=== PATIENT | female | born 1995 | race Hispanic/Latino ===

== ENCOUNTER 2016-11-09 20:55 | Emergency (ER) | payer MEDICAID, OTHER ==
[2016-11-09 20:56] VITALS: BMI 39.8
[2016-11-09 21:25] VITALS: BP 130/78; PULSE 90; RESP 18; TEMP 98; O2SAT 100
--- NOTE | 2016-11-09 22:17 | ED PDOC ---
Lower Extremity Pain/Injury Time Seen by Provider: 11/09/16 21:15 Chief Complaint (Nursing): Lower Extremity Problem/Injury Chief Complaint (Provider): Right ankle pain History Per: Patient History/Exam Limitations: no limitations Onset/Duration Of Symptoms: Days Current Symptoms Are (Timing): Still Present Severity: Severe Pain Scale Rating Of: 9 Additional Complaint(s): Pt was on a trampoline and when she came down her right foot came down first. Pt states she twisted the right ankle. PT states she attemped to "walk it off" but it made it worse. 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 Denies numbness/tingling. Past Medical History Reviewed: Historical Data, Nursing Documentation, Vital Signs Vital Signs: Last Vital Signs Temp 98 F 11/09/16 21:22 Pulse 90 11/09/16 21:22 Resp 18 11/09/16 21:22 BP 130/78 11/09/16 21:22 Pulse Ox 100 11/09/16 21:22 - Medical History PMH: No Chronic Diseases Denies: HIV, Chronic Kidney Disease - Surgical History Surgical History: No Surg Hx - Family History Family History: States: Unknown Family Hx - Living Arrangements Living Arrangements: With Family - Social History Current smoker - smoking cessation education provided: No Alcohol: None Drugs: Denies - Immunization History Hx Tetanus Toxoid Vaccination: No Hx Influenza Vaccination: No Hx Pneumococcal Vaccination: No - Home Medications Home Medications: Ambulatory Orders Medication Instructions Recorded Ibuprofen [Motrin Tab] 800 mg PO Q6H PRN #20 tab 11/09/16 - Allergies Allergies/Adverse Reactions: Allergies Allergy/AdvReac Type Severity Reaction Status Date / Time No Known Allergies Allergy Verified 06/20/16 14:10 Review of Systems ROS Statement: Except As Marked, All Systems Reviewed And Found Negative Musculoskeletal: Positive for: Other (Right ankle pain ) Skin: Negative for: Bruising Physical Exam - Reviewed Nursing Documentation Reviewed: Yes Vital Signs Reviewed: Yes - Physical Exam Appears: Positive for: Well, Non-toxic, No Acute Distress Head Exam: Positive for: ATRAUMATIC, NORMAL INSPECTION, NORMOCEPHALIC Skin: Positive for: Normal Color (No ecchymosis, no erythema of the lef ankle ) , Warm Eye Exam: Positive for: Normal appearance ENT: Positive for: Normal ENT Inspection Neck: Positive for: Normal, Painless ROM Respiratory: Negative for: Accessory Muscle Use, Respiratory Distress Pulses-Dorsalis Pedis (L): 2+ Pulses-Dorsalis Pedis (R): 2+ Pulses-Post. Tibialis (L): 2+ Pulses-Post. Tibialis (R): 2+ Back: Positive for: Normal Inspection Extremity: Positive for: Normal ROM. Negative for: Tenderness Neurologic/Psych: Positive for: Alert, Oriented - ECG O2 Sat by Pulse Oximetry: 100 Pulse Ox Interpretation: Normal Medical Decision Making Medical Decision Making: Ankle x-ray: No acute fracture or dislocation. Air cast and crutches given. Disposition - Clinical Impression Clinical Impression: Ankle sprain - Patient ED Disposition Is Patient to be Admitted: No Counseled Patient/Family Regarding: Diagnosis, Need For Followup, Rx Given - Disposition Referrals: [facility] [Outside] [facility] [Outside] Disposition: Routine/Home Disposition Time: 22:59 Condition: GOOD Prescriptions: Ibuprofen [Motrin Tab] 800 mg PO Q6H PRN #20 tab PRN Reason: Pain Instructions: Ankle Sprain (ED)
--- NOTE | 2016-11-10 10:09 | RAD ---
PROCEDURE: Right Ankle Radiographs. HISTORY: pain s/p twisting COMPARISON: Comparison made with radiographs of the right foot 02/08/2016 FINDINGS: BONES: No evidence of acute displaced fracture nor dislocation. The osseous structures appear intact. Talar dome intact. . JOINTS: Ankle mortise maintained. No significant osteoarthritis. SOFT TISSUES: Minor bilateral soft tissue swelling. OTHER FINDINGS: None. IMPRESSION: No evidence of acute displaced fracture nor dislocation. Minor bilateral soft tissue swelling.
== END 2016-11-09 23:09 | disposition home or self-care (01) ==
LOC: H.ER 20:55
DX: S93.401A Sprain of unspecified ligament of right ankle, initial encounter (principal); X50.9XXA Other and unspecified overexertion or strenuous movements or postures, initial encounter; Y92.89 Other specified places as the place of occurrence of the external cause

== ENCOUNTER 2016-12-20 16:20 | Observation (INO) | payer OTHER ==
[2016-12-20 16:20] VITALS: BMI 39.8
[2016-12-20] MEDS ORDERED: Sodium Chloride 0.9% 1,000 ML IV STA ×2 (16:39→20:30)
--- NOTE | 2016-12-20 16:43 | ED PDOC ---
HPI: Abdomen Time Seen by Provider: 12/20/16 16:22 Chief Complaint (Nursing): Abdominal Pain Chief Complaint (Provider): abdominal pain History Per: Patient History/Exam Limitations: no limitations Location Of Pain/Discomfort: RUQ, Epigastric (with radiaition to back. feels better leaning forward. ) Quality Of Discomfort: Sharp, Cramping Associated Symptoms: Nausea, Vomiting, Back Pain. denies: Fever, Chills, Diarrhea, Loss Of Appetite, Chest Pain, Constipation Additional Complaint(s): 21yo F in ED for eval of acute abdominal pain beginning this afternoon, sharp intense pain radiating to back intermittent with nausea vomiting and inability to tolerate PO. pt denies dysuria, hematuira, vaginal d/c, bloody stool, cough, sore throat, ear pain . denies hx of STI. Past Medical History Reviewed: Historical Data, Nursing Documentation, Vital Signs Vital Signs: Last Vital Signs Temp 99.2 F 12/20/16 16:22 Pulse 140 H 12/20/16 16:22 Resp 16 12/20/16 16:22 BP 123/74 12/20/16 16:22 Pulse Ox 99 12/20/16 20:00 - Medical History PMH: No Chronic Diseases Denies: HIV, Chronic Kidney Disease - Family History Family History: States: Unknown Family Hx - Immunization History Hx Tetanus Toxoid Vaccination: No Hx Influenza Vaccination: No Hx Pneumococcal Vaccination: No - Home Medications Home Medications: Ambulatory Orders Medication Instructions Recorded Ibuprofen [Motrin Tab] 800 mg PO Q6H PRN #20 tab 11/09/16 - Allergies Allergies/Adverse Reactions: Allergies Allergy/AdvReac Type Severity Reaction Status Date / Time No Known Allergies Allergy Verified 06/20/16 14:10 Review of Systems ROS Statement: Except As Marked, All Systems Reviewed And Found Negative Constitutional: Negative for: Fever, Chills, Weakness ENT: Negative for: Ear Pain, Ear Discharge, Nose Pain, Nose Discharge, Nose Congestion, Mouth Pain, Mouth Swelling, Throat Pain, Throat Swelling Respiratory: Negative for: Cough, Shortness of Breath Gastrointestinal: Positive for: Nausea, Vomiting, Abdominal Pain Genitourinary Female: Negative for: Dysuria, Hematuria, Vaginal Discharge, Vaginal Bleeding, Pelvic Pain Skin: Negative for: Rash Physical Exam - Reviewed Nursing Documentation Reviewed: Yes Vital Signs Reviewed: Yes - Physical Exam Appears: Positive for: Well, Non-toxic, No Acute Distress Skin: Positive for: Normal Color, Warm, DRY Eye Exam: Positive for: Normal appearance ENT: Positive for: Normal ENT Inspection Cardiovascular/Chest: Positive for: Regular Rate, Rhythm Respiratory: Positive for: CNT, Normal Breath Sounds Gastrointestinal/Abdominal: Positive for: Bowel Sounds, Soft, Tenderness (RUQ and epigastric pain), Guarding. Negative for: Organomegaly, Mass, Distended Back: Positive for: Normal Inspection. Negative for: L CVA Tenderness, R CVA Tenderness Extremity: Positive for: Normal ROM Lymphatic: Positive for: Normal Exam Neurologic/Psych: Positive for: Alert, Oriented - Laboratory Results Result Diagrams: 12/20/16 17:05 12/20/16 17:05 - ECG O2 Sat by Pulse Oximetry: 99 - Progress ED Course And Treament: impression: gallbladder disease vs pancreatitis GERD PT with elevated WBC-will be given Zoysn pt was given pepcid, zofran, NS and morphine, however pain persistent-pt was given torodol. 12/20/16 12/20/16 12/20/16 17:38 17:05 17:05 WBC 18.7 H D RBC 4.48 Hgb 14.2 Hct 43.6 MCV 97.2 D MCH 31.6 H MCHC 32.5 L RDW 13.0 Plt Count 251 D MPV 8.8 Neut % (Auto) 86.8 H Lymph % (Auto) 6.0 L [place] % (Auto) 5.6 Eos % (Auto) 1.3 Baso % (Auto) 0.3 Neut # 16.2 H Lymph # 1.1 [place] # 1.1 H Eos # 0.2 Baso # 0.1 Neutrophils % (Manual) 82 H Band Neutrophils % 6 H Lymphocytes % (Manual) 7 L Reactive Lymphs % 2 H Monocytes % (Manual) 2 Eosinophils % (Manual) 1 Platelet Estimate Normal Hypochromasia (manual) Slight Anisocytosis (manual) Slight Stomatocytes Slight Sodium 140 Potassium 4.2 Chloride 106 Carbon Dioxide 20 L Anion Gap 18 BUN 13 Creatinine 0.6 L Est GFR ( Amer) > 60 Est GFR (Non-Af Amer) > 60 Random Glucose 96 Calcium 9.1 Total Bilirubin 0.8 AST 25 ALT 36 Alkaline Phosphatase 97 Total Protein 8.0 Albumin 4.7 Globulin 3.3 Albumin/Globulin Ratio 1.4 Lipase 82 Urine Color Yellow Urine Clarity Slighty-cloudy Urine pH 5.0 Ur Specific [place] 1.032 H Urine Protein 30 Urine Glucose (UA) Neg Urine Ketones Negative Urine Blood Small Urine Nitrate Negative Urine Bilirubin Negative Urine Urobilinogen 0.2-1.0 Ur Leukocyte Esterase Trace Urine RBC (Auto) 4 H Urine Microscopic WBC 3 Ur Squamous Epith Cells [address] Urine [address] scan: ABDOMEN: Liver: Fatty infiltration. Gallbladder and bile ducts: No calcified stones. No ductal dilation. Pancreas: No ductal dilation. No mass. Spleen: No splenomegaly. Adrenals: No mass. Kidneys and ureters: No mass. No hydronephrosis. Stomach and bowel: No definite mural thickening. No obstruction. Appendix: Normal caliber. No inflammation. PELVIS: Bladder: Unremarkable. Reproductive: Unremarkable as visualized. ABDOMEN and PELVIS: Intraperitoneal space: No significant fluid collection. No free air. Bones/joints: No acute fracture. Soft tissues: Minimal soft tissue thickening along umbilicus. No discrete collection. Vasculature: Unremarkable. No aneurysm. Lymph nodes: No pathologically enlarged lymph nodes. IMPRESSION: 1. No definite acute intraabdominal abnormality. 2. Incidental/non-acute findings are described above. US: FINDINGS: Limitations: Body habitus. Liver: Normal echogenicity. No mass. No intrahepatic bile duct dilatation. Gallbladder: No gallstones. No definite wall thickening. No pericholecystic fluid. No sonographic Solis's sign. Common bile duct: No dilatation. No stones. Pancreas: Unremarkable as visualized. Right kidney: Normal echogenicity. No hydronephrosis. IMPRESSION: 1. No acute findings. Thank you for allowing us to participate in the care of your patient. Dictated and Authenticated by: Joseph Fine MD 12/20/2016 6:00 PM Eastern Time ([place] & [place]) MD Henny made aware. considering pt is with elevated WBC and elevated Bands normal CT and US and only trace leuk with epigastric pain(non consistent with pylonephiritis or c/o dysuria) and continuos pain pt will be admitted. MD Frannie contacted-suggests pt gets d-dimer, Troponin and EKG and make aware of results. Disposition - Clinical Impression Clinical Impression: Abdominal pain - Patient ED Disposition Is Patient to be Admitted: Transfer of Care - Disposition Disposition Time: 20:02 Condition: STABLE Forms: Kiddy (Serbian) Patient Signed Over To: Gopal Guerrero (pending labs)
[2016-12-20 17:31] LABS: BASO # 0.1 K/uL (0.0-0.2); BASO % 0.3 % (0.0-2.0); EOS # 0.2 K/uL (0.0-0.7); EOS % 1.3 % (0.0-4.0); HEMATOCRIT 43.6 % (34.0-47.0); LYMPH # 1.1 K/uL (1.0-4.3); MEAN CELL VOLUME 97.2 fl (81.0-99.0); MEAN CORPUSCULAR HEMOGLOBIN 31.6 pg (27.0-31.0); MEAN CORPUSCULAR HGB CONC 32.5 g/dL (33.0-37.0); MEAN PLATELET VOLUME 8.8 fl (7.2-11.7); MONO # 1.1 K/uL (0.0-0.8); MONO % 5.6 % (0.0-10.0); NEUT # 16.2 K/uL (1.8-7.0); NEUT % 86.8 % (50.0-75.0); PLATELET COUNT 251 K/uL (130-400); WHITE BLOOD COUNT 18.7 K/uL (4.8-10.8)
[2016-12-20 17:40] LABS: ALB/GLOB RATIO 1.4 (1.0-2.1); ALKALINE PHOSPHATASE 97 U/L (38-126); ALT/SGPT 36 U/L (9-52); AST/SGOT 25 U/L (14-36); BILIRUBIN,TOTAL 0.8 mg/dl (0.2-1.3); BLOOD UREA NITROGEN 13 mg/dl (7-17); CALCIUM 9.1 mg/dL (8.4-10.2); CARBON DIOXIDE 20 mmol/L (22-30); CHLORIDE 106 mmol/L (98-107); GFR AFRICAN-AMERICAN > 60; GLUCOSE,RANDOM 96 mg/dL (65-105); LIPASE 82 U/L (23-300); POTASSIUM 4.2 MMOL/L (3.6-5.0); SODIUM 140 mmol/l (132-148)
[2016-12-20] MEDS ORDERED: Piperacillin/Tazobact 3.375 GM in Sodium Chloride 0.9% 100 ML IVPB STA (17:45)
[2016-12-20] MEDS ORDERED: Piperacillin/Tazobact 3.375 gm Inj IVPB ONE (17:49)
--- NOTE | 2016-12-20 18:00 | US ---
EXAM: US Abdomen Limited, Right Upper Quadrant CLINICAL HISTORY: 21 years old, female; Pain; Abdominal pain; Epigastric; Patient HX: Pt states pain x few hrs on/off; Additional info: Epigastric pain ruq tendern TECHNIQUE: Real-time ultrasound of the right upper quadrant with image documentation. COMPARISON: No relevant prior studies available. FINDINGS: Limitations: Body habitus. Liver: Normal echogenicity. No mass. No intrahepatic bile duct dilatation. Gallbladder: No gallstones. No definite wall thickening. No pericholecystic fluid. No sonographic Solis's sign. Common bile duct: No dilatation. No stones. Pancreas: Unremarkable as visualized. Right kidney: Normal echogenicity. No hydronephrosis. IMPRESSION: 1.No acute findings.
[2016-12-20 18:06] LABS: RBC URINE 4 /hpf (0-3); URINE BACTERIA RARE (<OCC); URINE BILIRUBIN NEGATIVE (NEGATIVE); URINE BLOOD SMALL (NEGATIVE); URINE COLOR YELLOW (YELLOW); URINE GLUCOSE (UA) NEG (Normal); URINE KETONE NEGATIVE (NEGATIVE); URINE LEUKOCYTE ESTERASE TRACE Leu/uL (Negative); URINE PROTEIN 30 mg/dL (NEGATIVE); URINE UROBILINOGEN 0.2-1.0 mg/dL (0.2-1.0); WBC URINE 3 /hpf (0-5)
[2016-12-20] MEDS ORDERED: Sodium Chloride 0.9% 50 ML IV ONE ×2 (18:26→20:53)
[2016-12-20] MEDS ORDERED: Iohexol 300 50 ML ONE (18:26)
--- NOTE | 2016-12-20 19:00 | CT ---
EXAM: CT Abdomen and Pelvis With Intravenous Contrast CLINICAL HISTORY: 21 years old, female; Pain; Abdominal pain; Epigastric; Additional info: Abdominal pain elevated wbc TECHNIQUE: Axial computed tomography images of the abdomen and pelvis with intravenous contrast. All CT scans at this facility use one or more dose reduction techniques, viz.: automated exposure control; ma/kV adjustment per patient size (including targeted exams where dose is matched to indication; i.e. head); or iterative reconstruction technique. Coronal and sagittal reformatted images were created and reviewed. CONTRAST: 95 mL of Omnipaque administered intravenously. COMPARISON: CT - ABD PELVIS PO IV CONTRAST 08/06/2014 10:27:56 PM FINDINGS: Lower thorax: No acute findings. ABDOMEN: Liver: Fatty infiltration. Gallbladder and bile ducts: No calcified stones. No ductal dilation. Pancreas: No ductal dilation. No mass. Spleen: No splenomegaly. Adrenals: No mass. Kidneys and ureters: No mass. No hydronephrosis. Stomach and bowel: No definite mural thickening. No obstruction. Appendix: Normal caliber. No inflammation. PELVIS: Bladder: Unremarkable. Reproductive: Unremarkable as visualized. ABDOMEN and PELVIS: Intraperitoneal space: No significant fluid collection. No free air. Bones/joints: No acute fracture. Soft tissues: Minimal soft tissue thickening along umbilicus. No discrete collection. Vasculature: Unremarkable. No aneurysm. Lymph nodes: No pathologically enlarged lymph nodes. IMPRESSION: 1. No definite acute intraabdominal abnormality. 2. Incidental/non-acute findings are described above.
[2016-12-20 19:07] LABS: EOSINOPHIL 1 % (0-7); NEUTROPHIL 82 % (42-75); REACTIVE LYMPHOCYTES 2 % (0-0); TOTAL CELLS COUNTED 100
[2016-12-20 19:09] LABS: STOMATOCYTES SLIGHT
--- NOTE | 2016-12-20 20:21 | ED PDOC ---
- Laboratory Results Result Diagrams: 12/21/16 04:00 12/21/16 04:00 - ECG O2 Sat by Pulse Oximetry: 99 - Progress ED Course And Treament: 1999 Signed out to me pending CTA chest r/o PE. 2004 On my initial evaluation, pt. resting comfortably and in no distress. Informed of plan to admit and agrees. EKG: Sinus tach 126bpm without ST-T wave changes. VBG ordered. 2138 Pain returned. Temperature 101 Morphine 4mg IV, zofran 4mg IV, Tylenol 975mg PO ordered. 0000 CTA chest: negative Case and results d/w Dr. Kathleen and arrangements made for admission. Disposition - Clinical Impression Clinical Impression: Intractable abdominal pain - POA Present On Arrival: None - Disposition Disposition: Routine/Home Disposition Time: 00:00 Condition: STABLE
[2016-12-20] MEDS ORDERED: Iodixanol 320 MG/ML 100 ML BOTTLE IV ONE (20:53)
[2016-12-20 21:18] LABS: VENOUS BLOOD GAS BASE EXCESS -1.1 mmol/L (0.0-2.0); VENOUS BLOOD GAS PCO2 38 mmHg (40-60)
--- NOTE | 2016-12-20 22:39 | CT ---
EXAM: CT Angiography Chest With Intravenous Contrast CLINICAL HISTORY: 21 years old, female; Signs and symptoms; Tachypnea; Additional info: Tachycardia TECHNIQUE: Axial computed tomographic angiography images of the chest with intravenous contrast using pulmonary embolism protocol. All CT scans at this facility use one or more dose reduction techniques, viz.: automated exposure control; ma/kV adjustment per patient size (including targeted exams where dose is matched to indication; i.e. head); or iterative reconstruction technique. MIP reconstructed images were created and reviewed. Coronal and sagittal reformatted images were created and reviewed. CONTRAST: 70 mL of [id number] administered intravenously. COMPARISON: No relevant prior studies available. FINDINGS: Limitations: Suboptimal timing of bolus. Pulmonary arteries: No definite pulmonary embolism. Aorta: No aneurysm. No dissection. Lungs: No consolidation. Pleural space: No significant effusion. No pneumothorax. Heart: No cardiomegaly. No significant pericardial effusion. Bones/joints: No acute fracture. No dislocation. Soft tissues: Unremarkable. Lymph nodes: No pathologically enlarged lymph nodes. Liver: Fatty infiltration. IMPRESSION: 1. No definite CT evidence of pulmonary embolism. 2. Incidental/non-acute findings are described above.
[2016-12-21 04:16] LABS: BASO % 0.3 % (0.0-2.0); EOS # 0.2 K/uL (0.0-0.7); EOS % 2.8 % (0.0-4.0); HEMATOCRIT 34.9 % (34.0-47.0); LYMPH # 1.5 K/uL (1.0-4.3); LYMPH % 19.8 % (20.0-40.0); MEAN CELL VOLUME 95.6 fl (81.0-99.0); MEAN CORPUSCULAR HEMOGLOBIN 33.1 pg (27.0-31.0); MEAN CORPUSCULAR HGB CONC 34.6 g/dL (33.0-37.0); MEAN PLATELET VOLUME 8.4 fl (7.2-11.7); MONO # 0.6 K/uL (0.0-0.8); MONO % 8.2 % (0.0-10.0); NEUT # 5.2 K/uL (1.8-7.0); NEUT % 68.9 % (50.0-75.0); NRBC % 0.1 % (0.0-0.0); RED CELL DISTRIBUTION WIDTH 12.8 % (11.5-14.5); WHITE BLOOD COUNT 7.5 K/uL (4.8-10.8)
[2016-12-21 04:26] LABS: ALB/GLOB RATIO 1.3 (1.0-2.1); ALKALINE PHOSPHATASE 66 U/L (38-126); ALT/SGPT 28 U/L (9-52); AST/SGOT 20 U/L (14-36); BILIRUBIN,TOTAL 0.7 mg/dl (0.2-1.3); BLOOD UREA NITROGEN 11 mg/dl (7-17); CALCIUM 8.1 mg/dL (8.4-10.2); CARBON DIOXIDE 25 mmol/L (22-30); CHLORIDE 107 mmol/L (98-107); GFR AFRICAN-AMERICAN > 60; GLUCOSE,RANDOM 92 mg/dL (65-105); POTASSIUM 3.9 MMOL/L (3.6-5.0); SODIUM 139 mmol/l (132-148); TOTAL PROTEIN 5.9 G/DL (6.3-8.2)
[2016-12-21 04:57] LABS: THYROID STIMULATING HORMONE 0.94 mIU/ML (0.46-4.68)
[2016-12-21] MEDS: Budesonide 0.25 mg/2 ml Inhal Susp UD INH SCH ×2 (07:37→19:12)
--- NOTE | 2016-12-21 07:55 | RAD ---
HISTORY: cough COMPARISON: Chest radiograph 11/14/2007. TECHNIQUE: Chest PA and lateral FINDINGS: LUNGS: No active pulmonary disease. PLEURA: No significant pleural effusion identified. No pneumothorax apparent. CARDIOVASCULAR: Normal. OSSEOUS STRUCTURES: No significant abnormalities. VISUALIZED UPPER ABDOMEN: Normal. OTHER FINDINGS: None. IMPRESSION: No acute cardiopulmonary disease or significant interval change 11/14/2007.
[2016-12-21] MEDS: Enoxaparin 40 mg Syringe SC SCH (08:23)
[2016-12-21] MEDS: Azithromycin 500 MG in Sodium Chloride 0.9% 250 ML IVPB SCH (08:24)
--- NOTE | 2016-12-21 12:36 | CP.PCM.CON ---
History of Present Illness - History of Present Illness History of Present Illness: this 21-year-old female was hospitalized with abdominal pain which was aggravated by meals.she was also febrile at admission (Temp 101 degrees)with leukocytosis. This consultation was requested because of a suspicious tracing from telemetry which was suggestive of ventricular tachycardia. The patient denies any history of hypertension or diabetes and has had 3 successful pregnancies without any complication. She denies any palpitations or lightheadedness or syncope or near syncope. She was told of having had a murmur as a child but it never got in the way of normal life, iincluding the 3 aforementioned pregnancies. She has no family history of vascular disease. She denies taking any recreational drugs. Physical examination shows a young female who is comfortable at rest, alert awake weren't afebrile. She has a heart rate of 74 bpm and a blood pressure of 104/74 mmHg. jugular venous pressure was not elevated and there was no edema over lower extremity. The pedal pulses were well felt. Thyroid and breast did not reveal anything abnormal. Her extremities were warm. Her nailbeds were pink. There was no central or peripheral cyanosis. Her apex was in the fifth space and first and second heart sounds were normal. There was no murmur or gallop there were no rales. Abdomen was soft liver and spleen are not palpable. Her electro-cardiogram showed sinus rhythm at 126 bpm at admission when she was febrile. her QTC was 480 ms. There are electro-cardiogram otherwise was unremarkable. Her echocardiogram showed a normal-sized left ventricle with normal regional wall motion and wall thickening. Her resting left ventricular ejection fraction was 65-70%. Her lab data at admission showed leukocytosis with WBC count of 18,700 with elevated neutrophil count. This has resolved this morning. Her electrolytes and BUN/creatinine were normal. Review of the telemetric tracing suspicious of ventricular tachycardia indicates severe baseline artifact through which her QRSs March regularly. No evidence of ventricular tachycardia or cardiac abnormality detected. Past Patient History - Infectious Disease Hx of Infectious Diseases: None - Past Medical History & Family History Past Medical History?: Yes - Past Social History Smoking Status: Former Smoker - CARDIAC Hx Cardiac Disorders: No - PULMONARY Hx Respiratory Disorders: No - NEUROLOGICAL Hx Neurological Disorder: Yes (vertigo) Hx Dizziness: Yes Hx Vertigo: Yes - HEENT Hx HEENT Problems: No - RENAL Hx Chronic Kidney Disease: No - ENDOCRINE/METABOLIC Hx Endocrine Disorders: No - HEMATOLOGICAL/ONCOLOGICAL Hx Human Immunodeficiency Virus (HIV): No - INTEGUMENTARY Hx Dermatological Problems: Yes (psorasis) - MUSCULOSKELETAL/RHEUMATOLOGICAL Hx Falls: No - GASTROINTESTINAL Hx Gastrointestinal Disorders: Yes Other/Comment: Abdominal hernia - GENITOURINARY/GYNECOLOGICAL Hx Genitourinary Disorders: No - PSYCHIATRIC Hx Substance Use: No - SURGICAL HISTORY Hx Surgeries: No - ANESTHESIA Hx Anesthesia: No Hx Anesthesia Reactions: No Hx Malignant Hyperthermia: No Meds Allergies/Adverse Reactions: Allergies Allergy/AdvReac Type Severity Reaction Status Date / Time No Known Allergies Allergy Verified 06/20/16 14:10 - Medications Medications: Current Medications Budesonide (Pulmicort Respules) 0.25 mg INH RBID [facility] Stop: 12/21/16 20:01 Last Admin: 12/21/16 07:37 Dose: 0.25 mg Enoxaparin Sodium (Lovenox) 40 mg SC DAILY [facility] PRN Reason: Protocol Last Admin: 12/21/16 08:23 Dose: 40 mg Ceftriaxone Sodium 1 gm/ (Sodium Chloride) 100 mls @ 100 mls/hr IVPB DAILY [facility] Last Admin: 12/21/16 08:25 Dose: 100 mls/hr Azithromycin 500 mg/ Sodium (Chloride) 250 mls @ 250 mls/hr IVPB DAILY [facility] Last Admin: 12/21/16 08:24 Dose: 250 mls/hr Pantoprazole Sodium (Protonix Inj) 40 mg IVP DAILY [facility] Last Admin: 12/21/16 08:23 Dose: 40 mg Results - Vital Signs Recent Vital Signs: Last Vital Signs Temp 98.4 F 12/21/16 11:57 Pulse 88 12/21/16 11:57 Resp 18 12/21/16 11:57 BP 107/73 12/21/16 11:57 Pulse Ox 98 12/21/16 11:57 - Labs Result Diagrams: 12/21/16 04:00 12/21/16 04:00 Labs: Laboratory Results - last 24 hr 12/21/16 12/21/16 12/21/16 03:30 04:00 04:00 WBC 7.5 D RBC 3.65 L Hgb 12.1 D Hct 34.9 MCV 95.6 MCH 33.1 H MCHC 34.6 RDW 12.8 Plt Count 184 MPV 8.4 Neut % (Auto) 68.9 Lymph % (Auto) 19.8 L [place] % (Auto) 8.2 Eos % (Auto) 2.8 Baso % (Auto) 0.3 Neut # 5.2 Lymph # 1.5 [place] # 0.6 Eos # 0.2 Baso # 0.0 Sodium 139 Potassium 3.9 Chloride 107 Carbon Dioxide 25 Anion Gap 11 BUN 11 Creatinine 0.6 L Est GFR ( Amer) > 60 Est GFR (Non-Af Amer) > 60 Random Glucose 92 Calcium 8.1 L Total Bilirubin 0.7 AST 20 ALT 28 Alkaline Phosphatase 66 Troponin I < 0.0120 Total Protein 5.9 L Albumin 3.3 L D Globulin 2.6 Albumin/Globulin Ratio 1.3 TSH 3rd Generation 0.94
[2016-12-21] MEDS: Sucralfate 1 gm/10 ml Oral Susp UD PO SCH (17:24)
--- NOTE | 2016-12-22 00:19 | CP.PCM.HP ---
History of Present Illness - History of Present Illness History of Present Illness: A 21 yr old femlae with hx of GERD,obesity,psoriasis came with c\o epigastric pain radiating to both sides ,as kept recurrent without resolving with her regular meds Past Patient History - Infectious Disease Hx of Infectious Diseases: None - Past Medical History & Family History Past Medical History?: Yes - Past Social History Smoking Status: Former Smoker - CARDIAC Hx Cardiac Disorders: No - PULMONARY Hx Respiratory Disorders: No - NEUROLOGICAL Hx Neurological Disorder: Yes (vertigo) Hx Dizziness: Yes Hx Vertigo: Yes - HEENT Hx HEENT Problems: No - RENAL Hx Chronic Kidney Disease: No - ENDOCRINE/METABOLIC Hx Endocrine Disorders: No - HEMATOLOGICAL/ONCOLOGICAL Hx Human Immunodeficiency Virus (HIV): No - INTEGUMENTARY Hx Dermatological Problems: Yes (psorasis) - MUSCULOSKELETAL/RHEUMATOLOGICAL Hx Falls: No - GASTROINTESTINAL Hx Gastrointestinal Disorders: Yes Other/Comment: Abdominal hernia - GENITOURINARY/GYNECOLOGICAL Hx Genitourinary Disorders: No - PSYCHIATRIC Hx Substance Use: No - SURGICAL HISTORY Hx Surgeries: No - ANESTHESIA Hx Anesthesia: No Hx Anesthesia Reactions: No Hx Malignant Hyperthermia: No Meds Allergies/Adverse Reactions: Allergies Allergy/AdvReac Type Severity Reaction Status Date / Time No Known Allergies Allergy Verified 06/20/16 14:10 Results - Vital Signs Recent Vital Signs: Last Vital Signs Temp 98.2 F 12/22/16 00:08 Pulse 90 12/22/16 00:08 Resp 18 12/22/16 00:08 BP 110/70 12/22/16 00:08 Pulse Ox 97 12/22/16 00:08 - Labs Result Diagrams: 12/21/16 04:00 12/21/16 04:00 Labs: Laboratory Results - last 24 hr 12/21/16 12/21/16 12/21/16 03:30 04:00 04:00 WBC 7.5 D RBC 3.65 L Hgb 12.1 D Hct 34.9 MCV 95.6 MCH 33.1 H MCHC 34.6 RDW 12.8 Plt Count 184 MPV 8.4 Neut % (Auto) 68.9 Lymph % (Auto) 19.8 L [place] % (Auto) 8.2 Eos % (Auto) 2.8 Baso % (Auto) 0.3 Neut # 5.2 Lymph # 1.5 [place] # 0.6 Eos # 0.2 Baso # 0.0 Sodium 139 Potassium 3.9 Chloride 107 Carbon Dioxide 25 Anion Gap 11 BUN 11 Creatinine 0.6 L Est GFR ( Amer) > 60 Est GFR (Non-Af Amer) > 60 Random Glucose 92 Calcium 8.1 L Total Bilirubin 0.7 AST 20 ALT 28 Alkaline Phosphatase 66 Troponin I < 0.0120 Total Protein 5.9 L Albumin 3.3 L D Globulin 2.6 Albumin/Globulin Ratio 1.3 TSH 3rd Generation 0.94 12/21/16 12:14 WBC RBC Hgb Hct MCV MCH MCHC RDW Plt Count MPV Neut % (Auto) Lymph % (Auto) [place] % (Auto) Eos % (Auto) Baso % (Auto) Neut # Lymph # [place] # Eos # Baso # Sodium Potassium Chloride Carbon Dioxide Anion Gap BUN Creatinine Est GFR ( Amer) Est GFR (Non-Af Amer) Random Glucose Calcium Total Bilirubin AST ALT Alkaline Phosphatase Troponin I < 0.0120 Total Protein Albumin Globulin Albumin/Globulin Ratio TSH 3rd Generation Assessment & Plan (1) Epigastric pain Status: Acute (2) Fever Status: Acute (3) Psoriasis Status: Acute
[2016-12-22 08:34] VITALS: RESP 20
[2016-12-22] MEDS: Sucralfate 1 gm/10 ml Oral Susp UD PO SCH (08:41)
[2016-12-22] MEDS: Enoxaparin 40 mg Syringe SC SCH (08:42)
[2016-12-22] MEDS: Azithromycin 500 MG in Sodium Chloride 0.9% 250 ML IVPB SCH (08:44)
--- NOTE | 2016-12-22 11:22 | CARD ---
APPROVED REPORT EXAM: Two-dimensional and M-mode echocardiogram with Doppler and color Doppler. Other Information Quality : GoodRhythm : NSR INDICATION LV Function:SystolicDiastolic Chest pressure 2D DIMENSIONS IVSd1.00 (0.7-1.1cm)LVDd4.62 (3.9-5.9cm) LVOT Diameter2.22 (1.8-2.4cm)PWd0.84 (0.7-1.1cm) IVSs1.39 (0.8-1.2cm)LVDs2.99 (2.5-4.0cm) FS (%) 35.3 %PWs1.52 (0.8-1.2cm) M-Mode DIMENSIONS Left Atrium (MM)3.81 (2.5-4.0cm)IVSd1.35 (0.7-1.1cm) Aortic Root2.54 (2.2-3.7cm)LVDd4.63 (4.0-5.6cm) Aortic Cusp Exc.1.82 (1.5-2.0cm)PWd0.88 (0.7-1.1cm) IVSs1.52 cmFS (%) 27 % LVDs3.39 (2.0-3.8cm)PWs1.24 cm Mitral Valve E/A ratio0.0 TDI E/Lateral E'0.0E/Medial E'0.0 Pulmonary Valve PV Peak Whbjarxp552.3cm/s LEFT VENTRICLE The left ventricle is normal size. There is normal left ventricular wall thickness. The left ventricular function is normal. The left ventricular ejection fraction is 60% There is normal LV segmental wall motion. The left ventricular diastolic function is normal. No left ventricle thrombus noted on this study. There is no ventricular septal defect visualized. There is no left ventricular aneurysm. There is no mass noted in the left ventricle. RIGHT VENTRICLE The right ventricle is normal size. There is normal right ventricular wall thickness. The right ventricular systolic function is normal. ATRIA The left atrium size is normal. The right atrium size is normal. The interatrial septum is intact with no evidence for an atrial septal defect. AORTIC VALVE The aortic valve is normal in structure and function. No aortic regurgitation is present. There is no aortic valvular stenosis. There is no aortic valvular vegetation. MITRAL VALVE The mitral valve is normal in structure and function. There is no evidence of mitral valve prolapse. There is no mitral valve stenosis. There is no mitral valve regurgitation noted. TRICUSPID VALVE The tricuspid valve is normal in structure and function. There is no tricuspid valve regurgitation noted. There is no tricuspid valve prolapse or vegetation. There is no tricuspid valve stenosis. PULMONIC VALVE The pulmonary valve is normal in structure and function. There is no pulmonic valvular regurgitation. There is no pulmonic valvular stenosis. GREAT VESSELS The aortic root is normal in size. The ascending aorta is normal in size. The IVC is normal in size and collapses >50% with inspiration. PERICARDIAL EFFUSION The pericardium appears normal. There is no pleural effusion. <Conclusion> Normal Echocardiogram
[2016-12-22 12:20] VITALS: BP 104/66; PULSE 79; TEMP 98.7; O2SAT 98
== END 2016-12-22 12:45 | disposition home or self-care (01) ==
LOC: H.ER 16:20 → H.ERHOLD 12-21 → INTOOBSV 12-21 → H.TEL 12-21 01:56
PROVIDERS: ADMIT Internal Medicine; ATTEND Internal Medicine
DX: R10.13 Epigastric pain (principal); R50.9 Fever, unspecified; Z87.891 Personal history of nicotine dependence; K21.9 Gastro-esophageal reflux disease without esophagitis; E66.9 Obesity, unspecified; Z68.41 Body mass index [BMI] 40.0-44.9, adult; L40.9 Psoriasis, unspecified
CPT/HCPCS: 36415; 71020; 71275; 74177; 76705; 80053; 81003; 81025; 82803; 83690; 84443; 84484; 85025; 85378; 87040; 87070; 87086; 87430; 93306; 94640; 96374; 96375; 96376; 99285; C9113; G0378; J0456; J0696; J1650; J1885; J2270; J2405; J2543; J7040; Q9967

== ENCOUNTER 2018-01-09 10:03 | Emergency (ER) | payer MEDICAID, OTHER ==
[2018-01-09 10:19] VITALS: BMI 42.0
[2018-01-09 10:21] VITALS: O2SAT 98
[2018-01-09] MEDS ORDERED: Sodium Chloride 0.9% 1,000 ML IV STA (11:17)
[2018-01-09 11:58] LABS: SQUAMOUS EPITHIAL 4 /hpf (0-5); URINE BACTERIA RARE (<OCC); URINE BILIRUBIN NEGATIVE (NEGATIVE); URINE BLOOD NEGATIVE (NEGATIVE); URINE CLARITY SLIGHTY-CLOUDY (Clear); URINE COLOR YELLOW (YELLOW); URINE GLUCOSE (UA) NEG (Normal); URINE LEUKOCYTE ESTERASE TRACE Leu/uL (Negative); URINE PROTEIN NEGATIVE (NEGATIVE); URINE UROBILINOGEN 0.2-1.0 mg/dL (0.2-1.0)
[2018-01-09 13:30] LABS: ALB/GLOB RATIO 1.3 (1.0-2.1); ALT/SGPT 28 U/L (9-52); AST/SGOT 32 U/L (14-36); BLOOD UREA NITROGEN 12 mg/dl (7-17); CALCIUM 8.9 mg/dL (8.4-10.2); GFR NON-AFRICAN AMERICAN > 60; LIPASE 159 U/L (23-300)
--- NOTE | 2018-01-09 14:04 | ED PDOC ---
HPI: Abdomen Time Seen by Provider: 01/09/18 11:11 Chief Complaint (Nursing): GI Problem Chief Complaint (Provider): Abdominal Pain, Diarrhea History Per: Patient History/Exam Limitations: no limitations Onset/Duration Of Symptoms: Days (x2) Current Symptoms Are (Timing): Still Present Additional Complaint(s): 22 year old female, with no significant past medical history, presenting for evaluation of abdominal pain x2 days. Patient states pain is associated with watery diarrhea and nausea. Patient states she was in the bathroom for an extended time at work and when she came out she was sweaty. Patient states her boss saw her sweaty and made her come to the ED. Patient denies any weakness or dizziness and states she was able to drive to the ED without any problems. Patient states her children have recently been sick with similar symptoms. Patient says she rarely has diarrhea, but it feels like a viral stomach but and she normally wouldnt present to the ED for evaluation, but wants to be worked up due to her sweating. Past Medical History Reviewed: Historical Data, Nursing Documentation, Vital Signs Vital Signs: Last Vital Signs Temp 98.7 F 01/09/18 10:19 Pulse 86 01/09/18 10:19 Resp 17 01/09/18 10:19 BP 103/64 01/09/18 10:19 Pulse Ox 98 01/09/18 14:10 - Medical History PMH: No Chronic Diseases Denies: HIV, Chronic Kidney Disease - Surgical History Surgical History: No Surg Hx - Family History Family History: States: Unknown Family Hx - Immunization History Hx Tetanus Toxoid Vaccination: No Hx Influenza Vaccination: No Hx Pneumococcal Vaccination: No - Home Medications Home Medications: Ambulatory Orders Medication Instructions Recorded Azithromycin [Zithromax Tri-Shayan] 500 mg PO DAILY #3 tablet 12/22/16 Omeprazole 20 mg PO Q12 #20 capsule. 12/22/16 Sucralfate [Carafate Oral Susp] 1 gm PO BID #20 12/22/16 Nitrofurantoin Macrocrystals 100 mg PO BID #10 cap 01/09/18 [Macrobid] - Allergies Allergies/Adverse Reactions: Allergies Allergy/AdvReac Type Severity Reaction Status Date / Time No Known Allergies Allergy Verified 06/20/16 14:10 Review of Systems ROS Statement: Except As Marked, All Systems Reviewed And Found Negative Constitutional: Positive for: Sweats. Negative for: Weakness Gastrointestinal: Positive for: Nausea, Abdominal Pain, Diarrhea Neurological: Negative for: Dizziness Physical Exam - Reviewed Nursing Documentation Reviewed: Yes Vital Signs Reviewed: Yes - Physical Exam Appears: Positive for: Well (patient is obese), Non-toxic, No Acute Distress Head Exam: Positive for: ATRAUMATIC, NORMAL INSPECTION, NORMOCEPHALIC Skin: Positive for: Normal Color, Warm, Dry. Negative for: Rash Eye Exam: Positive for: EOMI, Normal appearance, PERRL ENT: Positive for: Normal ENT Inspection Neck: Positive for: Normal, Painless ROM, Supple Cardiovascular/Chest: Positive for: Regular Rate, Rhythm. Negative for: Murmur Respiratory: Positive for: Normal Breath Sounds. Negative for: Respiratory Distress Gastrointestinal/Abdominal: Positive for: Normal Exam, Soft. Negative for: Tenderness Back: Positive for: Normal Inspection. Negative for: L CVA Tenderness, R CVA Tenderness, Vertebral Tenderness Extremity: Positive for: Normal ROM. Negative for: Pedal Edema, Swelling Neurologic/Psych: Positive for: Alert, Oriented, Gait (ambulatory without deficits). Negative for: Motor/Sensory Deficits - Laboratory Results Result Diagrams: 01/09/18 11:50 - ECG O2 Sat by Pulse Oximetry: 98 (RA) Pulse Ox Interpretation: Normal Medical Decision Making Medical Decision Makin Plan: Patient seen and evaluated. Labs ordered. Patient treated with Zofran and Tylenol for symptoms. Hydrated with NS 1L. 1347: Diarrhea. Most likely viral in etiology, however UA shows slight UTI. Patient with stable vitals and tolerating PO. Patient will be given prescription for Macrobid and discharged home. Advised to follow up with PMD and given 2 days absence from work. Return parameters discussed. Scribe Attestation: Documented by Case Aleman, acting as a scribe for Inocencia Carter MD. Provider Scribe Attestation: All medical record entries made by the Scribe were at my direction and personally dictated by me. I have reviewed the chart and agree that the record accurately reflects my personal performance of the history, physical exam, medical decision making, and the department course for this patient. I have also personally directed, reviewed, and agree with the discharge instructions and disposition. Disposition - Clinical Impression Clinical Impression: Diarrhea, Urinary tract infection - Patient ED Disposition Is Patient to be Admitted: No Counseled Patient/Family Regarding: Studies Performed, Diagnosis, Need For Followup, Rx Given - Disposition Disposition: Routine/Home Disposition Time: 13:47 Condition: IMPROVED Additional Instructions: Increase water intake while symptoms last. Take antibiotics for urinary tract infection. Follow up with primary medical doctor. Return to the emergency department if symptoms worsen or if new symptoms develop. Prescriptions: Nitrofurantoin Macrocrystals [Macrobid] 100 mg PO BID #10 cap Instructions: Diarrhea and Traveler's Diarrhea, Adult (DC), Urinary Tract Infection, Adult (DC) Forms: [facility] ([place]) Print Language: TELUGU
[2018-01-09 14:28] VITALS: BP 109/71; PULSE 84; RESP 16; TEMP 98.4
== END 2018-01-09 14:26 | disposition home or self-care (01) ==
LOC: H.ER 10:03
DX: N39.0 Urinary tract infection, site not specified (principal); R19.7 Diarrhea, unspecified
CPT/HCPCS: 80053; 81003; 83690; 84703; 96361; 96374; 99284; J2405; J7030

== ENCOUNTER 2018-08-10 10:49 | Emergency (ER) | payer MEDICAID ==
[2018-08-10 10:50] VITALS: BMI 42.0
[2018-08-10] MEDS ORDERED: Sodium Chloride 0.9% 1,000 ML IV SCH (11:30)
--- NOTE | 2018-08-10 11:35 | ED PDOC ---
HPI:STROKE - Time Time: 11:31 - Historian Historian: Patient - Chief Complaint Chief Complaint: Numbness, other (Headache) - Onset Date: 08/10/18 Time: 08:30 Onset: Hours (3) - Timing Timing: Improved - Context Context: Standing - Location Locate left: Face - Severity of pain Maximum severity:: Moderate Severity Current: Mild - Quality of Pain Quality of Pain:: Stabbing - Exacerbated by Exacerbated by:: Nothing - Relieved by Relieved by:: Nothing - TPA Positive for Contraindication: Yes Reason tPA is not being Administered: Sxs improving - Notes: Notes:: Sharp left sided posterior headache assoc with difficulty speaking and numbness left side of face and left arm. Headache improving and now able to speak. NIHSS Stroke Scale - Date/Time Evaluation Performed Date Performed: 08/10/18 Time Performed: 11:35 When Was NIHSS Performed: Baseline - How Severe is the Stroke Level of Consciousness: 0=Alert LOC to Questions: 0=Both comments correct LOC to commands: 0=Obeys both correctly Best Gaze: 0=Normal Visual: 0=No visual loss Facial: 0=Normal Motor Arm - Left: 0=No drift Motor Arm - Right: 0=No drift Motor Leg - Left: 0=No drift Motor Leg - Right: 0=No drift Limb Ataxia: 0=Absent Sensory: 1=Mild to moderate loss Best Language: 0=No aphasia Dysarthia: 0=Normal articulation Extinction & Inattention (Neglect): 0=Normal, no object Score: 1 rTPA Inclusion/Exclusion - Refusal of Treatment Patient Refused Treatment: No - Inclusion Criteria for Altepase Patient is 18 years or Older: Yes The Clinical Diagnosis of Ischemic Stroke That is Causing a Potentially Disabling Neurological Deficit: No Time of Onset is Well Established to be Less Than 270 Minute Before Treatment Would Begin: Yes Risk/Benefit Discussed With Patient/Family Member Present: No Past Medical History Vital Signs: Last Vital Signs Temp 98 F 08/10/18 11:29 Pulse 94 H 08/10/18 11:29 Resp 18 08/10/18 11:29 BP 123/69 08/10/18 11:29 Pulse Ox 97 08/10/18 11:29 - Medical History PMH: Migraine Denies: HIV, Chronic Kidney Disease Other PMH: Psoriasis - Family History Family History: States: Unknown Family Hx - Immunization History Hx Tetanus Toxoid Vaccination: No Hx Influenza Vaccination: No Hx Pneumococcal Vaccination: No - Home Medications Home Medications: Ambulatory Orders Medication Instructions Recorded Baclofen [Lioresal] 10 mg PO Q12 PRN 08/10/18 Ergocalciferol (Vitamin D2) 50,000 unit PO SUN 08/10/18 [Vitamin D2] Etanercept [Enbrel] 50 mg SQ WE 08/10/18 Ibuprofen [Motrin Tab] 600 mg PO Q6 PRN 08/10/18 Omeprazole 20 mg PO DAILY 08/10/18 - Allergies Allergies/Adverse Reactions: Allergies Allergy/AdvReac Type Severity Reaction Status Date / Time No Known Allergies Allergy Verified 08/10/18 11:10 Review of Systems ROS Statement: Except As Marked, All Systems Reviewed And Found Negative Neurological: Positive for: Numbness, Headache Physical Exam - Reviewed Nursing Documentation Reviewed: Yes Vital Signs Reviewed: Yes - Physical Exam Appears: Positive for: Non-toxic, No Acute Distress Head Exam: Positive for: ATRAUMATIC, NORMAL INSPECTION, NORMOCEPHALIC Skin: Positive for: Normal Color, Warm, DRY Eye Exam: Positive for: EOMI, Normal appearance, PERRL ENT: Positive for: Normal ENT Inspection Neck: Positive for: Normal, Painless ROM Cardiovascular/Chest: Positive for: Regular Rate, Rhythm Respiratory: Positive for: CNT, Normal Breath Sounds Gastrointestinal/Abdominal: Positive for: Normal Exam, Soft Back: Positive for: Normal Inspection Extremity: Positive for: Normal ROM Neurological/Psych: Positive for: Awake, Alert, Normal Tone, Motor/Sensory Deficits (Mild numbness left side of face and left upper ext.) - Laboratory Results Result Diagrams: 08/10/18 11:30 08/10/18 11:30 - ECG O2 Sat by Pulse Oximetry: 97 Medical Decision Making Medical Decision Making: Discussed with Neurologist Dr. Howard. Agrees that TPa not indicated as sxs are improving and more likely due to complicated migraine. Will come in and evaluate patient. 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 Aware of risks including CVA, hemorrhage and . Has her own neurologist Dr. Voss, will follow up with him. Disposition - Clinical Impression Clinical Impression: Migraine, TIA (transient ischemic attack) - Patient ED Disposition Is Patient to be Admitted: No Counseled Patient/Family Regarding: Studies Performed, Diagnosis, Need For Followup - Disposition Referrals: Qamar Voss MD [Staff Provider] - Disposition: Routine/Home Disposition Time: 13:49 Condition: FAIR Instructions: Transient Ischemic Attack, Migraine Headache (DC) Forms: [employer] (E[place]ian)
--- NOTE | 2018-08-10 11:49 | CT ---
Date of service: 08/10/2018 PROCEDURE: CT HEAD WITHOUT CONTRAST. HISTORY: TIA, initial exam COMPARISON: 11/14/2007 TECHNIQUE: Axial computed tomography images were obtained through the head/brain without intravenous contrast. Radiation dose: Total exam DLP = 1071.25 mGy-cm. This CT exam was performed using one or more of the following dose reduction techniques: Automated exposure control, adjustment of the mA and/or kV according to patient size, and/or use of iterative reconstruction technique. FINDINGS: HEMORRHAGE: No intracranial hemorrhage. BRAIN: No mass effect or edema. No atrophy or chronic microvascular ischemic changes. VENTRICLES: Unremarkable. No hydrocephalus. CALVARIUM: Unremarkable. PARANASAL SINUSES: Unremarkable as visualized. No significant inflammatory changes. MASTOID AIR CELLS: Unremarkable as visualized. No inflammatory changes. OTHER FINDINGS: None. IMPRESSION: No evidence of acute infarct. No intracranial hemorrhage. Unremarkable examination. The findings in this examination were discussed, by telephone, with Dr. Mcnamara at 11:45 a.m. on 08/10/2018.
[2018-08-10 12:33] LABS: BASO % 0.6 % (0.0-2.0); EOS # 0.2 K/uL (0.0-0.7); EOS % 1.8 % (0.0-4.0); HEMOGLOBIN 13.2 g/dL (12.0-16.0); LYMPH # 2.5 K/uL (1.0-4.3); LYMPH % 29.4 % (20.0-40.0); MEAN CELL VOLUME 96.9 fl (81.0-99.0); MEAN CORPUSCULAR HEMOGLOBIN 32.7 pg (27.0-31.0); MEAN CORPUSCULAR HGB CONC 33.7 g/dL (33.0-37.0); MEAN PLATELET VOLUME 8.6 fl (7.2-11.7); MONO # 0.6 K/uL (0.0-0.8); MONO % 7.2 % (0.0-10.0); NEUT # 5.1 K/uL (1.8-7.0); NRBC % 0.2 % (0.0-0.0); RBC 4.05 Mil/uL (3.80-5.20); RED CELL DISTRIBUTION WIDTH 13.1 % (11.5-14.5); WHITE BLOOD COUNT 8.4 K/uL (4.8-10.8)
[2018-08-10 12:35] LABS: PROTHROMBIN TIME 11.4 Seconds (9.8-13.1)
[2018-08-10 12:37] LABS: PARTIAL THROMBOPLASTIN TIME 31.7 Seconds (25.6-37.1)
[2018-08-10 12:49] LABS: BLOOD UREA NITROGEN 15 mg/dl (7-17); CALCIUM 9.5 mg/dL (8.4-10.2); GFR NON-AFRICAN AMERICAN > 60; HDL CHOLESTEROL 47 MG/DL (30-70)
[2018-08-10 12:59] LABS: LDL CHOLESTEROL 102 mg/dL (0-129)
[2018-08-10 13:07] LABS: ALB/GLOB RATIO 1.3 (1.0-2.1); ALBUMIN 4.6 g/dL (3.5-5.0); ALT/SGPT 23 U/L (9-52); AST/SGOT 33 U/L (14-36)
[2018-08-10 14:01] VITALS: BP 141/82; PULSE 78; RESP 20; TEMP 98.7; O2SAT 99
--- NOTE | 2018-08-10 14:22 | RAD ---
Date of service: 08/10/2018 HISTORY: Code Stroke COMPARISON: 12/20/2016 TECHNIQUE: 1 view obtained. FINDINGS: LUNGS: No active pulmonary disease. PLEURA: No significant pleural effusion identified, no pneumothorax apparent. CARDIOVASCULAR: No aortic atherosclerotic calcification present. Normal cardiac size. No pulmonary vascular congestion. OSSEOUS STRUCTURES: No significant abnormalities. VISUALIZED UPPER ABDOMEN: Normal. OTHER FINDINGS: None. IMPRESSION: No active disease.
--- NOTE | 2018-08-10 19:02 | CARD ---
APPROVED REPORT Date of service: 08/10/2018 EKG Measurement Heart [id number] DC [id number] <Conclusion> Normal sinus rhythm Normal ECG
== END 2018-08-10 13:49 | disposition home or self-care (01) ==
LOC: H.ER 10:49
DX: G43.909 Migraine, unspecified, not intractable, without status migrainosus (principal); G45.9 Transient cerebral ischemic attack, unspecified; L40.9 Psoriasis, unspecified; Z79.899 Other long term (current) drug therapy
CPT/HCPCS: 70450; 71045; 80053; 80061; 81025; 82948; 83036; 84484; 85025; 85610; 85730; 86850; 86900; 93005; 99285; J7030